=== PATIENT | male | born 1960 | race Caucasian/White ===

== ENCOUNTER 2016-09-30 20:05 | Inpatient (IN) | payer MEDICAID ==
[2016-09-30] MEDS ORDERED: LEVOFLOXACIN 500 MG/D5W RTU 100 ML IV ONE (21:39)
[2016-09-30 21:57] LABS: APPEARANCE,URINE CLEAR; BILIRUBIN,URINE NEGATIVE (NEGATIVE); GLUCOSE, URINE NEGATIVE (NEGATIVE); KETONES,URINE NEGATIVE (NEGATIVE); LEUKOCYTE ESTERASE,URINE NEGATIVE (NEGATIVE); NITRITE,URINE NEGATIVE (NEGATIVE); PROTEIN,URINE NEGATIVE (NEGATIVE); URINE SPECIFIC GRAVITY 1.003; UROBILINOGEN,URINE NEGATIVE mg/dL (<2.0)
[2016-09-30] MEDS ORDERED: LORAZEPAM INJ 2 MG/1 ML VIAL IV ONE (22:02)
[2016-09-30 22:15] LABS: ABSOLUTE BASOPHILS # (AUTO) 0.1 10^3/uL (0.0-0.2); ABSOLUTE EOSINOPHILS # (AUTO) 0.1 10^3/uL (0.0-0.6); ABSOLUTE LYMPHOCYTES (AUTO) 3.1 10^3/uL (0.5-4.7); ABSOLUTE MONOCYTES (AUTO) 0.7 10^3/uL (0.1-1.4); ABSOLUTE NEUT (AUTO) 5.7 10^3/uL (1.7-8.2); BASOPHILS % (AUTO) 1.2 % (0-2); EOSINOPHILS % (AUTO) 0.6 % (0-6); HEMATOCRIT 41.9 % (37.9-51.0); HEMOGLOBIN 14.3 g/dL (13.5-17.0); LYMPHOCYTES % (AUTO) 32.4 % (13-45); MEAN CORPUSCULAR HEMOGLOBIN 34.1 pg (27.0-33.4); MEAN CORPUSCULAR HGB CONC 34.1 g/dL (32.0-36.0); MEAN CORPUSCULAR VOLUME 100 fl (80-97); MONOCYTES % (AUTO) 6.9 % (3-13); RED BLOOD COUNT 4.19 10^6/uL (4.35-5.55); RED CELL DISTRIBUTION WIDTH 13.8 % (11.5-14.0); SEGMENTED NEUTROPHILS % (AUTO) 58.9 % (42-78); WHITE BLOOD COUNT 9.6 10^3/uL (4.0-10.5)
[2016-09-30 22:16] LABS: VENOUS BLOOD BASE EXCESS -8.4 mmol/L; VENOUS BLOOD HCO3 16.3 mmol/L (20-32); VENOUS BLOOD PCO2 31.7 mmHg (35-63); VENOUS BLOOD PH 7.33 (7.30-7.42)
[2016-09-30 22:21] LABS: PROTHROMBIN TIME 12.9 SEC (11.4-15.4)
[2016-09-30] MEDS ORDERED: NORMAL SALINE 1000 ML 1,000 ML IV PRN (22:21)
[2016-09-30 22:39] LABS: ALANINE AMINOTRANSFERASE 30 U/L (21-72); ALBUMIN 4.7 g/dL (3.5-5.0); ALCOHOL 235 mg/dL (NONE DETECTED); ALKALINE PHOSPHATASE 82 U/L (38-126); ANION GAP 19 (5-19); ASPARTATE AMINO TRANSFERASE 22 U/L (17-59); BLOOD UREA NITROGEN 12 mg/dL (7-20); CALCIUM 9.7 mg/dL (8.4-10.2); CARBON DIOXIDE 19 mmol/L (22-30); CHLORIDE 108 mmol/L (98-107); CREATININE RESULT 0.72 mg/dL (0.52-1.25); GLUCOSE 122 mg/dL (75-110); POTASSIUM 3.8 mmol/L (3.6-5.0); TOTAL PROTEIN 7.5 g/dL (6.3-8.2)
[2016-09-30 22:53] LABS: BILIRUBIN,TOTAL 0.4 mg/dL (0.2-1.3)
--- NOTE | 2016-09-30 23:03 | ER Document Report ---
ED General - General Stated Complaint: ALTERED MENTAL STATUS Mode of Arrival: Medic Information source: Patient Notes: 56-year-old male history of substance abuse alcohol abuse who was recently discharged from the hospital after being on life-support presents with complaints of being found down outside his care facility. Patient admitted to drinking. Family notes he is quite confused TRAVEL OUTSIDE OF THE [place] IN LAST 30 DAYS: No - HPI Onset: Just prior to arrival Onset/Duration: Sudden Quality of pain: No pain Severity: Mild Pain Level: 1 Past Medical History - Social History Smoking Status: Current Every Day Smoker Cigarette use (# per day): Yes Chew tobacco use (# tins/day): No Smoking Education Provided: Yes - Patient counselled regarding cessation for 4 minutes Family History: Reviewed & Not Pertinent Review of Systems - Review of Systems Notes: REVIEW OF SYSTEMS: CONSTITUTIONAL : Denies fever, chills, or sweats. Denies recent illness. EENT: Denies eye, ear, throat, or mouth pain or symptoms. Denies nasal or sinus congestion or discharge. Denies throat, tongue, or mouth swelling or difficulty swallowing. CARDIOVASCULAR: Denies chest pain. Denies palpitations or racing or irregular heart beat. Denies ankle edema. RESPIRATORY: Denies cough, cold, or chest congestion. Denies shortness of breath, difficulty breathing, or wheezing. GASTROINTESTINAL: Denies abdominal pain or distention. Denies nausea, vomiting , or diarrhea. Denies blood in vomitus, stools, or per rectum. Denies black, tarry stools. Denies constipation. GENITOURINARY: Denies difficulty urinating, painful urination, burning, frequency, blood in urine, or discharge. MUSCULOSKELETAL: Denies back or neck pain or stiffness. Denies joint pain or swelling. SKIN: Denies rash, lesions or sores. HEMATOLOGIC : Denies easy bruising or bleeding. LYMPHATIC: Denies swollen, enlarged glands. NEUROLOGICAL: Denies confusion or altered mental status. Denies passing out or loss of consciousness. Denies dizziness or lightheadedness. Denies headache. Denies weakness or paralysis or loss of use of either side. Denies problems with gait or speech. Denies sensory loss, numbness, or tingling. Denies seizures. PSYCHIATRIC: Denies anxiety or stress. Denies depression, suicidal ideation, or homicidal ideation. ALL OTHER SYSTEMS REVIEWED AND NEGATIVE. Dictation was performed using Dragon voice recognition software PHYSICAL EXAMINATION: GENERAL: Well-appearing, well-nourished and in mild resp distress. pt intoxicated HEAD: Atraumatic, normocephalic. EYES: Pupils equal round and reactive to light, extraocular movements intact, sclera anicteric, conjunctiva are normal. ENT: Nares patent, oropharynx clear without exudates. Moist mucous membranes. NECK: Normal range of motion, supple without lymphadenopathy LUNGS: coarse wheezing all throughout HEART: Regular rate and rhythm without murmurs ABDOMEN: Soft, nontender, nondistended abdomen. No guarding, no rebound. No masses appreciated. Musculoskeletal: Normal range of motion, no pitting or edema. No cyanosis. NEUROLOGICAL: slurred speech SKIN: Warm, Dry, normal turgor, no rashes or lesions noted. Physical Exam - Vital signs Vitals: Temp Pulse Resp BP Pulse Ox 97.6 F 77 18 113/60 87 L 09/30/16 20:21 09/30/16 20:21 09/30/16 20:21 09/30/16 20:21 09/30/16 20:21 Course - Re-evaluation Re-evalutation: 09/30/16 23:17 Immediate chest x-ray was performed which noted bilateral infiltrates, patient' s lab work does note lactic acidosis. He is also intoxicated. Patient does meet criteria for sepsis and was started on antibiotics, pt was hypoxic started on o2 10/01/16 01:43 contacted hospitalist, requests call back 10/01/16 03:[address] Lewis, tk admission - Vital Signs Vital signs: Temp Pulse Resp BP Pulse Ox 97.6 F 77 18 102/62 92 09/30/16 20:21 09/30/16 20:21 10/01/16 01:23 10/01/16 01:23 10/01/16 01:23 - Laboratory Result Diagrams: 09/30/16 22:00 09/30/16 22:00 Laboratory results interpreted by me: 09/30/16 09/30/16 09/30/16 22:00 22:00 22:00 RBC 4.19 L MCV 100 H MCH 34.1 H VBG pCO2 VBG HCO3 Sodium 146.0 H Chloride 108 H Carbon Dioxide 19 L Glucose 122 H POC Glucose Lactic Acid 3.8 H 09/30/16 09/30/16 22:00 23:09 RBC MCV MCH VBG pCO2 31.7 L VBG HCO3 16.3 L Sodium Chloride Carbon Dioxide Glucose POC Glucose 133 H Lactic Acid - Diagnostic Test Radiology reviewed: Image reviewed, Reports reviewed - EKG Interpretation by Me EKG shows normal: Sinus rhythm, Mikado, Intervals, QRS Complexes - Consults Dr lewis Time consulted: 23:17 Reason for consultation: 09/30/16 23:17 pending admission for sepsis pneumonia Critical Care Note - Critical Care Note Total time excluding time spent on procedures (mins): 34 Comments: 34 minutes of critical care time spent in direct contact evaluating and reevaluating the patient, treating symptoms, reviewing labs and studies and speaking with family and consultants excluding any procedures Discharge - Discharge Clinical Impression: Hospital acquired PNA, Alcohol abuse, Hypoxemia Sepsis Qualifiers: Sepsis type: sepsis due to unspecified organism Qualified Code(s): A41.9 - Sepsis, unspecified organism Condition: Fair Disposition: ADMITTED INPATIENT Admitting Provider: Hospitalist Unit Admitted: [facility]
[2016-09-30] MEDS ORDERED: HALOPERIDOL LACTATE INJ 5 MG/1 ML VIAL IV ONE (23:08)
[2016-10-01] MEDS ORDERED: VANCOMYCIN HCL INJ 1000 MG VIAL IV ONE (03:14)
[2016-10-01] MEDS ORDERED: PIPERACILLIN/TAZOBACTAM 3.375 GM VIAL IV ONE (03:15)
[2016-10-01] MEDS ORDERED: ACETAMINOPHEN 325 MG TABLET PO PRN (04:52)
[2016-10-01] MEDS ORDERED: GUAIFENESIN SYRP 200 MG/10 ML UDC PO PRN (04:52)
[2016-10-01] MEDS ORDERED: ALBUTEROL SULFATE 0.083% NEB 2.5 MG/3 ML AMPUL NEB PRN (04:52)
[2016-10-01] MEDS ORDERED: VANCOMYCIN HCL 0 MG in DEXTROSE 5%-WATER 250 ML IV NR (05:00)
[2016-10-01] MEDS ORDERED: LORAZEPAM 1 MG TABLET PO PRN (05:01)
--- NOTE | 2016-10-01 05:15 | PDOC H&P ---
History of Present Illness Admission Date/PCP: 10/01/16 03:28 Primary care provider uncertain Patient complains of: Altered mental status History of Present Illness: STEFANO ROUSE is a 56 year old male, currently a resident of [facility] for the past 3 months or so due to generalized debility due to years of chronic abuse, primarily alcohol, and also drug abuse. Was found down outside the facility and transported to the emergency room for further evaluation and treatment. No further information available this point in time. Was noted to be quite confused upon arrival in the emergency room, and at times has been quite agitated. Patient has been discussed with emergency room physician who evaluated the patient. Patient is oriented only to the fact that he is in the hospital and is able to provide no history whatsoever in terms of acute or chronic events, review of systems, personal habits, family history, etc. Brother Hi is present at his side, with patient's approval, and is helpful and informative. No prior inpatient records available for review. According to his brother, after patient was transferred to [facility] after stay at [facility] late last year for complications of possible drug overdose, patient was doing reasonably well and had been abstaining from alcohol. However, he has recently started back drinking. Prior to the above events, he would drink up to a fifth if not more of liquor a day. 2-3 pack a day smoker. History of drug abuse, including marijuana and crack cocaine. . According to brother, patient told his mother yesterday that he "wanted to . " Laboratory results are listed in [facility] and are reviewed. X-ray summary results are listed below, with full report(s) reviewed. . EKG reviewed. No old EKG available for comparison. Social history/personal habits: . 2 children. On disability. Personal habits as noted above. Allergies/adverse reactions NKDA. Home medications are to be [facility] from the medication administration record from [facility]. [facility] may not accurately reflect patient's true medications, dosages, and/or frequencies. REVIEW OF SYSTEMS: See history and present illness.No further information available this point in time. PHYSICAL EXAMINATION: 5 feet 11 inches tall. 97.98 kg. BMI 30.1 kg/m. Temperature 97.6. Blood pressure 134/73. Pulse 86 and regular. Respirations are 23 and unlabored. 96 % saturation on 2 L oxygen per nasal cannula. Obese disheveled chronically ill-appearing male who appears a number of years older than his stated age. Asleep. Awakens reasonably easily, although remains somewhat somnolent. Cooperative. Brother present at his side; patient approves. Skin is warm and dry. No grossly obvious evidence of rash in areas of skin examined. No subcutaneous nodules palpated. ENT: Hearing grossly normal to normal conversation. Tongue midline on protrusion pink and slightly tacky. Eyes: No scleral icterus. Pupils equal and reactive to light at 4 mm. [place] conjunctivae. Neck is supple and nontender to gentle active range of motion and palpation. Midline trachea. No palpable thyroid nodule mass enlargement or tenderness. Lymphatic: No palpable cervical or clavicular nodes. Neck and lymphatic exams limited by patient body habitus. Psychiatric: Difficult to evaluate due to his current status. Oriented only to the fact that he is in a hospital. Lungs: Auscultation reveals equal breath sounds bilaterally. No use of accessory respiratory muscles. Mildly coarse breath sounds on the right, with slight rhonchi. Much less noticeable on the left, and only in the base on the left. Cardiovascular: Heart regular rate and rhythm, without gallop murmur or rub. No carotid or abdominal aortic bruits. No ankle or pedal edema. palpable dorsalis pedis pulses. Abdomen: soft, obese, nontender with positive bowel sounds. Unable to adequately evaluate abdomen for masses or organomegaly due to body habitus. Extremities: Feet are warm and dry. No calf tenderness to compression. No grossly obvious visual evidence of calf swelling. Gentle manipulation of lower extremities fails to reveal any obvious evidence of injury or instability to knees hips or ankles. Neurologic: Moves upper extremities grossly normally. Patellar reflexes absent. Absent Babinski. Light touch is intact at feet. Dorsiflexion and plantarflexion of feet 5 / 5 and symmetric. Past Medical History Cardiac Medical History: Denies: DVT, Myocardial Infarction, Hyperlipidema, Pulmonary Embolism Pulmonary Medical History: Reports: Chronic Obstructive Pulmonary Disease (COPD) Neurological Medical History: Reports: Seizures Denies: Hemorrhagic CVA, Ischemic CVA Endocrine Medical History: Denies: Diabetes Mellitus Type 1, Diabetes Mellitus Type 2, Hyperthyroidism, Hypothyroidism Renal/ Medical History: Reports: None GI Medical History: Reports: Gastroesophageal Reflux Disease, Other - Fatty liver Denies: Cirrhosis, Hepatitis, Peptic Ulcer Disease Musculoskeltal Medical History: Reports: Other - Ankylosing spondylitis. Psychiatric Medical History: Reports: Alcohol Dependency, Depression, General Anxiety Disorder, Substance Abuse, Tobacco Dependency, Other - suicidal ideation Traumatic Medical History: Reports: Traumatic Brain Injury Hematology: Reports: None Infectious Medical History: Denies: Hepatitis B, Hepatitis C Past Surgical History Past Surgical History: Reports: Orthopedic Surgery - Leg surgery. Social History Information Source: Relative, Emergency Med Personnel, [facility] Records Lives with: Other - Assisted living center Smoking Status: Current Every Day Smoker Frequency of Alcohol Use: Heavy Drugs: Cocaine, Marijuana - Advance Directive Resuscitation Status: Full Code Surrogate healthcare decision maker:: Brother Hi Family History Family History: Reviewed & Not Pertinent Parental Family History Reviewed: Yes Children Family History Reviewed: Yes Sibling(s) Family History Reviewed.: Yes Medication/Allergy Home Medications: RX: Acetaminophen [Tylenol Extra Strength 500 mg Tablet] 500 mg PO Q4HP PRN 07/08 RX: Guaifenesin [Robitussin Syrup 200 mg/10 ml Ud Cup] 10 ml PO Q6HP PRN RX: Haloperidol [Haldol 5 mg Tablet] 5 mg PO DAILY 10/01/16 RX: Ipratropium/Albuterol Sulfate [Iprat-Albut 0.5-3(2.5) mg/3 ml] 3 ml NEB Q6HP PRN 10/01/16 RX: Loperamide HCl [Imodium 2 mg Capsule] 2 mg PO DAILYP PRN 10/01/16 RX: Mag Hydrox/Al Hydrox/Simeth [Maalox Plus Susp 30 Udcup] 30 ml PO HSP PRN 07/08 RX: Magnesium Hydroxide [Milk of Magnesia 30 ml Udcup] 30 ml PO HSP PRN RX: Neomy Sulf/Bacitrac Zn/Poly [Triple Antibiotic Ointment] 1 applic TOP DAILYP PRN 10/01/16 RX: Sertraline HCl [Zoloft] 150 mg PO DAILY 10/01/16 RX: Sulfasalazine [Azulfidine 500 mg Tablet.dr] 1,500 mg PO Q8 10/01/16 RX: Topiramate [Topamax] 50 mg PO Q12 10/01/16 RX: Trazodone HCl [Desyrel 50 mg Tablet] 50 mg PO QHS 10/01/16 Levofloxacin [Levaquin 750 mg Tablet] 750 mg PO DAILY #5 tablet 10/02/16 RX: Hydrocodone Bit/Acetaminophen [Hydrocodon-Acetaminophen 5-325] 1 each PO Q6HP PRN #10 tablet 10/02/16 RX: Lorazepam [Ativan 0.5 mg Tablet] 0.5 mg PO BID #10 tablet 10/02/16 RX: Multivitamin [Tab-A-Olvin (Multiple Vitamin) Tablet] 1 tab PO DAILY #30 tablet 10/02/16 RX: Nicotine [Nicoderm 21 mg/24 Hr Transderm Patch] 1 each TD DAILYP PRN #7 patch.td24 10/02/16 Allergies/Adverse Reactions: No Known Allergies Allergy (Unverified 10/01/16 05:03) Physical Exam Vital Signs: Temp Pulse Resp BP Pulse Ox 97.6 F 77 17 117/82 94 09/30/16 20:21 09/30/16 20:21 10/01/16 04:01 10/01/16 04:01 10/01/16 04:01 Results Impressions: Chest X-Ray 09/30/16 20:27 IMPRESSION: Bibasilar infiltrates. Head CT 09/30/16 23:19 IMPRESSION: No acute intracranial hemorrhage or acute territorial infarct. Assessment & Plan - Diagnosis (1) Alcohol intoxication Qualifiers: Complication of substance-induced condition: with unspecified complication Qualified Code(s): F10.129 - Alcohol abuse with intoxication, unspecified Is this a current diagnosis for this admission?: YesPlan: Daily multivitamin, folic acid, and thiamine. When necessary Ativan. Observe closely for signs of alcohol draw and treat appropriately. Brother interested in a higher level of care for patient, given his ongoing alcohol abuse. Discharge planning consult. (2) Pneumonia Qualifiers: Pneumonia type: due to unspecified organism Laterality: bilateral Lung location: lower lobe of lung Qualified Code(s): J18.9 - Pneumonia, unspecified organism Is this a current diagnosis for this admission?: YesPlan: Patient will be admitted under pneumonia protocol. Incentive spirometry twice a day. Scheduled DuoNeb's. PRN albuterol nebs Antibiotics will consist of intravenous vancomycin, cefepime, and intravenous Zithromax. Pharmacy to assist with dosing. I have strongly encouraged brother to remind patient not to get out of bed without notifying staff, , to avoid a fall with injury. Knee high SCDs for DVT prophylaxis, along with subcutaneous Lovenox Impression and plans were discussed with brother, who concurs. Time spent in evaluation and management of patient: 64 minutes. (3) Suicidal ideation Is this a current diagnosis for this admission?: YesPlan: Suicide precautions. Psychiatric consult. (4) Alcohol abuse Is this a current diagnosis for this admission?: Yes (5) COPD (chronic obstructive pulmonary disease) Qualifiers: COPD type: unspecified COPD Qualified Code(s): J44.9 - Chronic obstructive pulmonary disease, unspecified Is this a current diagnosis for this admission?: Yes (6) History of traumatic brain injury Is this a current diagnosis for this admission?: Yes (7) ALEJANDRA (obstructive sleep apnea) Is this a current diagnosis for this admission?: YesPlan: Brother uncertain of settings for patient's machine. CPAP daily at bedtime. - Inpatient Certification Based on my medical assessment, after consideration of the patient's comorbidities, presenting symptoms, or acuity I expect that the services needed warrant INPATIENT care.: Yes I certify that my determination is in accordance with my understanding of Medicare's requirements for reasonable and necessary INPATIENT services [42 CFR 412.3e].: Yes Medical Necessity: Significant Comorbidiites Make Outpatient Treatment Too Risky , Need Close Monitoring Due to Risk of Patient Decompensation, Need For IV Fluids, Need For Continuous Telemetry Monitoring, Need for Nebulizer Therapy and Monitoring of Response, Need for IV Antibiotics, Risk of Complication if Not Cared For in Hospital, Risk of Diagnosis Which Will Require Inpatient Eval/ Care/Monitoring Post Hospital Care: D/C or Transfer Summary
[2016-10-01] MEDS ORDERED: NICOTINE 21 MG/24 HR PATCH.TD24 TD PRN (05:27)
[2016-10-01 05:38] LABS: ABSOLUTE EOSINOPHILS # (AUTO) 0.1 10^3/uL (0.0-0.6); ABSOLUTE LYMPHOCYTES (AUTO) 2.7 10^3/uL (0.5-4.7); ABSOLUTE MONOCYTES (AUTO) 0.7 10^3/uL (0.1-1.4); ABSOLUTE NEUT (AUTO) 3.9 10^3/uL (1.7-8.2); BASOPHILS % (AUTO) 0.3 % (0-2); EOSINOPHILS % (AUTO) 1.2 % (0-6); HEMATOCRIT 37.7 % (37.9-51.0); HEMOGLOBIN 12.8 g/dL (13.5-17.0); HGB HCT DIFFERENCE 0.7; LYMPHOCYTES % (AUTO) 36.6 % (13-45); MEAN CORPUSCULAR VOLUME 100 fl (80-97); MONOCYTES % (AUTO) 9.3 % (3-13); RED BLOOD COUNT 3.77 10^6/uL (4.35-5.55); RED CELL DISTRIBUTION WIDTH 14.1 % (11.5-14.0); SEGMENTED NEUTROPHILS % (AUTO) 52.6 % (42-78); WHITE BLOOD COUNT 7.5 10^3/uL (4.0-10.5)
[2016-10-01 05:49] LABS: VENOUS BLOOD BASE EXCESS -6.2 mmol/L; VENOUS BLOOD HCO3 19.6 mmol/L (20-32); VENOUS BLOOD PCO2 40.1 mmHg (35-63); VENOUS BLOOD PH 7.31 (7.30-7.42)
[2016-10-01] MEDS ORDERED: VANCOMYCIN HCL INJ 1000 MG VIAL IV PRN (05:55)
[2016-10-01 06:00] LABS: ANION GAP 14 (5-19); BLOOD UREA NITROGEN 10 mg/dL (7-20); CALCIUM 8.2 mg/dL (8.4-10.2); CARBON DIOXIDE 19 mmol/L (22-30); CHLORIDE 110 mmol/L (98-107); CREATINE KINASE 273 U/L (55-170); CREATININE RESULT 0.67 mg/dL (0.52-1.25); GLUCOSE 137 mg/dL (75-110); MAGNESIUM 1.7 mg/dL (1.6-2.3); POTASSIUM 4.1 mmol/L (3.6-5.0); SODIUM 142.8 mmol/L (137-145)
[2016-10-01] MEDS ORDERED: THIAMINE HCL 100 MG TABLET PO ONE (06:00)
[2016-10-01 06:06] LABS: URINE BARBITURATES SCREEN NEGATIVE; URINE METHADONE SCREEN NEGATIVE; URINE OPIATES LOW NEGATIVE; URINE PHENCYCLIDINE SCREEN NEGATIVE
[2016-10-01 06:26] LABS: CREATINE KINASE MB 2.58 ng/mL (<4.55)
[2016-10-01 06:27] LABS: TROPONIN I < 0.012 ng/mL
[2016-10-01] MEDS ORDERED: VANCOMYCIN HCL 2,000 MG in DEXTROSE 5%-WATER 500 ML IV ONE (06:30)
[2016-10-01] MEDS: 1/2 NORMAL SALINE 1,000 ML IV PRN (07:59)
[2016-10-01] MEDS: IPRATROPIUM/ALBUTEROL 0.5-2.5 MG/3 ML AMPUL NEB SCH ×3 (08:43→21:11)
[2016-10-01] MEDS ORDERED: AZITHROMYCIN 500 MG in DEXTROSE 5%-WATER 250 ML IV SCH (10:00)
[2016-10-01] MEDS: FOLIC ACID 1 MG TABLET PO SCH (10:07)
[2016-10-01] MEDS: MULTIVITAMIN TABLET PO SCH (10:07)
[2016-10-01] MEDS: ENOXAPARIN SODIUM INJ 40 MG/0.4 ML DISP.SYRIN SUBCUT SCH (10:08)
[2016-10-01] MEDS ORDERED: DEXTROSE 50%-WATER 25 GM/50 ML DISP.SYRIN IV PRN ×2 (10:41)
[2016-10-01] MEDS ORDERED: INSULIN LISPRO 100 UNIT/ML 3 ML VIAL SUBCUT PRN (10:41)
[2016-10-01] MEDS ORDERED: GLUCAGON,HUMAN RECOMB 1 MG INJ IM PRN (10:41)
[2016-10-01] MEDS ORDERED: DEXTROSE 40% GEL 15 GM TUBE PO PRN ×2 (10:41)
[2016-10-01] MEDS: CEFEPIME 2 GM/D5W RTU 50 ML IV SCH (11:11)
--- NOTE | 2016-10-01 14:36 | PDOC PROGRESS REPORT ---
Subjective Progress Note for:: 10/01/16 Subjective:: No new issues reported. Patient denies fever, chills, headache, new focal weakness, chest pain, shortness of breath, abdominal pain, nausea, vomiting, diarrhea, constipation. Physical Exam Vital Signs: Temp Pulse Resp BP Pulse Ox 97.5 F 78 19 140/92 H 97 10/01/16 08:45 10/01/16 08:43 10/01/16 14:01 10/01/16 14:01 10/01/16 14:01 GENERAL: No acute distress, disheveled HEENT: Conjunctiva clear, nonicteric, moist mucous membranes, no JVD, midline trachea RESPIRATORY: Fine rhonchi heard throughout bilateral posterior lung lomeli CARDIAC: Regular rate and rhythm, no murmurs/gallops/rubs ABDOMEN: Soft, nondistended, nontender, positive bowel sounds, no rebound, no guarding EXTREMETIES: No edema, cyanosis, clubbing NEUROLOGIC: Alert, oriented to person/place/time, CN's grossly intact, no focal deficits SKIN: No rash, wounds PSYCH: Unusual affect Results Laboratory Results: 10/01/16 05:15 10/01/16 05:15 10/01/16 10/01/16 10/01/16 05:15 05:15 05:15 WBC RBC Hgb Hct MCV MCH MCHC RDW Plt Count Seg Neutrophils % Lymphocytes % Monocytes % Eosinophils % Basophils % Absolute Neutrophils Absolute Lymphocytes Absolute Monocytes Absolute Eosinophils Absolute Basophils VBG pH VBG pCO2 VBG HCO3 VBG Base Excess Sodium 142.8 Potassium 4.1 Chloride 110 H Carbon Dioxide 19 L Anion Gap 14 BUN 10 Creatinine 0.67 Est GFR ( Amer) > 60 Est GFR (Non-Af Amer) > 60 Glucose 137 H Calcium 8.2 L Magnesium 1.7 Ammonia 13.6 TSH 1.36 10/01/16 10/01/16 05:15 05:19 WBC 7.5 RBC 3.77 L Hgb 12.8 L Hct 37.7 L MCV 100 H MCH 34.0 H MCHC 34.0 RDW 14.1 H Plt Count 199 Seg Neutrophils % 52.6 Lymphocytes % 36.6 Monocytes % 9.3 Eosinophils % 1.2 Basophils % 0.3 Absolute Neutrophils 3.9 Absolute Lymphocytes 2.7 Absolute Monocytes 0.7 Absolute Eosinophils 0.1 Absolute Basophils 0.0 VBG pH 7.31 VBG pCO2 40.1 VBG HCO3 19.6 L VBG Base Excess -6.2 Sodium Potassium Chloride Carbon Dioxide Anion Gap BUN Creatinine Est GFR ( Amer) Est GFR (Non-Af Amer) Glucose Calcium Magnesium Ammonia TSH 10/01/16 10/01/16 05:15 05:15 Creatine Kinase 273 H CK-MB (CK-2) 2.58 Troponin I < 0.012 Impressions: Chest X-Ray 09/30/16 20:27 IMPRESSION: Bibasilar infiltrates. Head CT 09/30/16 23:19 IMPRESSION: No acute intracranial hemorrhage or acute territorial infarct. Assessment & Plan - Diagnosis (1) Alcohol intoxication Qualifiers: Complication of substance-induced condition: with unspecified complication Qualified Code(s): F10.129 - Alcohol abuse with intoxication, unspecified Is this a current diagnosis for this admission?: YesPlan: Patient was found intoxicated at local assisted living facility. He has history of chronic polysubstance abuse to include alcohol and cocaine. We will place patient on IV Ativan as needed for withdrawal symptoms. Oral thiamine supplementation. (2) Pneumonia Qualifiers: Pneumonia type: due to unspecified organism Laterality: bilateral Lung location: lower lobe of lung Qualified Code(s): J18.9 - Pneumonia, unspecified organism Is this a current diagnosis for this admission?: YesPlan: High probability of gram-negative organism given the fact the patient lives in the health care facility. Continue IV cefepime, IV vancomycin and IV azithromycin pending further blood and sputum cultures. Continue IV fluids. (3) Tobacco abuse Is this a current diagnosis for this admission?: Yes (4) Suicidal ideation Is this a current diagnosis for this admission?: YesPlan: Continue suicide precautions. Psychology consult placed. (5) COPD (chronic obstructive pulmonary disease) Qualifiers: COPD type: unspecified COPD Qualified Code(s): J44.9 - Chronic obstructive pulmonary disease, unspecified Is this a current diagnosis for this admission?: YesPlan: Albuterol nebulizer treatments as needed. (6) History of traumatic brain injury Is this a current diagnosis for this admission?: Yes (7) ALEJANDRA (obstructive sleep apnea) Is this a current diagnosis for this admission?: Yes - Time Time Spent with patient: 35 or more minutes - Inpatient Certification Based on my medical assessment, after consideration of the patient's comorbidities, presenting symptoms, or acuity I expect that the services needed warrant INPATIENT care.: Yes I certify that my determination is in accordance with my understanding of Medicare's requirements for reasonable and necessary INPATIENT services [42 CFR 412.3e].: Yes Medical Necessity: Need Close Monitoring Due to Risk of Patient Decompensation, Need For Continuous Telemetry Monitoring, Need for IV Antibiotics
[2016-10-01] MEDS ORDERED: VANCOMYCIN HCL 1,500 MG in DEXTROSE 5%-WATER 250 ML IV SCH ×2 (18:00→19:00)
--- NOTE | 2016-10-01 20:10 | EKG REPORT ---
SEVERITY:- ABNORMAL ECG - SINUS RHYTHM LEFT ANTERIOR FASCICULAR BLOCK : Confirmed by: Yelena Schmidt 01-Oct-2016 20:09:38
[2016-10-01] MEDS ORDERED: VANCOMYCIN HCL INJ 1000 MG VIAL ONE ×2 (20:58→23:25)
[2016-10-01] MEDS ORDERED: VANCOMYCIN HCL INJ 500 MG VIAL ONE ×2 (20:59→23:25)
[2016-10-01] MEDS: VANCOMYCIN HCL 1,500 MG in DEXTROSE 5%-WATER 250 ML IV SCH (21:00)
[2016-10-01] MEDS: TOPIRAMATE 25 MG TABLET PO SCH (22:46)
[2016-10-01] MEDS ORDERED: CEFEPIME 2 GM/D5W RTU 4 GM/100 ML RTUPB IV ONE (23:25)
[2016-10-02] MEDS: CEFEPIME 2 GM/D5W RTU 50 ML IV SCH (01:11)
[2016-10-02] MEDS: 1/2 NORMAL SALINE 1,000 ML IV PRN (03:00)
[2016-10-02] MEDS: VANCOMYCIN HCL 1,500 MG in DEXTROSE 5%-WATER 250 ML IV SCH (04:51)
--- NOTE | 2016-10-02 08:35 | PDOC DISCHARGE SUMMARY ---
General - Admit/Disc Date/PCP Admission Date/Primary Care Provider: 10/01/16 04:52 Discharge Date: 10/02/16 - Discharge Diagnosis (1) Alcohol intoxication Is this a current diagnosis for this admission?: Yes (2) Pneumonia Is this a current diagnosis for this admission?: Yes (3) Tobacco abuse Is this a current diagnosis for this admission?: Yes (4) Suicidal ideation Is this a current diagnosis for this admission?: Yes (5) COPD (chronic obstructive pulmonary disease) Is this a current diagnosis for this admission?: Yes (6) History of traumatic brain injury Is this a current diagnosis for this admission?: Yes (7) ALEJANDRA (obstructive sleep apnea) Is this a current diagnosis for this admission?: Yes - Additional Information Resuscitation Status: Full Code Discharge Diet: Regular Discharge Activity: Activity As Tolerated Home Medications: Acetaminophen [Tylenol Extra Strength 500 mg Tablet] 500 mg PO Q4HP PRN Guaifenesin [Robitussin Syrup 200 mg/10 ml Ud Cup] 10 ml PO Q6HP PRN 10/01/16 Haloperidol [Haldol 5 mg Tablet] 5 mg PO DAILY 10/01/16 Ipratropium/Albuterol Sulfate [Iprat-Albut 0.5-3(2.5) mg/3 ml] 3 ml NEB Q6HP PRN 10/01/16 Loperamide HCl [Imodium 2 mg Capsule] 2 mg PO DAILYP PRN 10/01/16 Mag Hydrox/Al Hydrox/Simeth [Maalox Plus Susp 30 Udcup] 30 ml PO HSP PRN Magnesium Hydroxide [Milk of Magnesia 30 ml Udcup] 30 ml PO HSP PRN 10/01/16 Neomy Sulf/Bacitrac Zn/Poly [Triple Antibiotic Ointment] 1 applic TOP DAILYP PRN 10/01/16 Sertraline HCl [Zoloft] 150 mg PO DAILY 10/01/16 Sulfasalazine [Azulfidine 500 mg Tablet.dr] 1,500 mg PO Q8 10/01/16 Topiramate [Topamax] 50 mg PO Q12 10/01/16 Trazodone HCl [Desyrel 50 mg Tablet] 50 mg PO QHS 10/01/16 Hydrocodone Bit/Acetaminophen [Hydrocodon-Acetaminophen 5-325] 1 each PO Q6HP PRN #10 tablet 03/13/17 Levofloxacin [Levaquin 750 mg Tablet] 750 mg PO DAILY #5 tablet 10/02/16 Lorazepam [Ativan 0.5 mg Tablet] 0.5 mg PO BID #10 tablet 10/02/16 Multivitamin [Tab-A-Olvin (Multiple Vitamin) Tablet] 1 tab PO DAILY #30 tablet Nicotine [Nicoderm 21 mg/24 Hr Transderm Patch] 1 each TD DAILYP PRN #7 patch.td24 10/02/16 History of Present Illness Patient complains of: Alcohol intoxication History of Present Illness: STEFANO ROUSE is a 56 year old male that was found intoxicated at assisted living facility. Sent to the emergency department. On chest x-ray to have pneumonia and started on antibiotics for this. Hospital Course Hospital Course: Patient was admitted for alcohol intoxication and possible pneumonia. He had no fever or white count on admission. Apparently he walked away from assisted living facility and went to the [employer] store and bought alcohol. He states he has not had anything to drink for over a year or to this. He was initially started on IV antibiotics for pneumonia but has now been transitioned to oral Levaquin. Patient is alert and oriented at time of discharge. He has no respiratory complaints at all. He will be discharged back to assisted living facility on oral antibiotics. Physical Exam Vital Signs: Temp Pulse Resp BP Pulse Ox 98.1 F 64 16 120/76 93 10/02/16 08:00 10/02/16 08:00 10/02/16 08:00 10/02/16 08:00 10/02/16 08:00 Intake & Output 10/01/16 10/02/16 10/03/16 06:59 06:59 06:59 Intake Total 1335 Output Total 600 Balance 735 Weight 102.2 kg GENERAL: No acute distress HEENT: Conjunctiva clear, nonicteric, moist mucous membranes, no JVD, midline trachea RESPIRATORY: Clear to auscultation bilaterally, no wheezes, no rhonchi CARDIAC: Regular rate and rhythm, no murmurs/gallops/rubs ABDOMEN: Soft, nondistended, nontender, positive bowel sounds, no rebound, no guarding EXTREMETIES: No edema, cyanosis, clubbing NEUROLOGIC: Alert, oriented to person/place/time, CN's grossly intact, no focal deficits SKIN: No rash, wounds PSYCH: Normal mood, normal affect Results Laboratory Results: 10/01/16 05:15 10/01/16 05:15 10/01/16 10/01/16 05:15 05:15 Creatine Kinase 273 H CK-MB (CK-2) 2.58 Troponin I < 0.012 Labs- All tests 24 hr 10/01/16 10/02/16 16:46 03:53 POC Glucose 115 H 110 Labs- Last Values WBC 7.5 10^3/uL (4.0-10.5) 10/01/16 05:15 RBC 3.77 10^6/uL (4.35-5.55) L 10/01/16 05:15 Hgb 12.8 g/dL (13.5-17.0) L 10/01/16 05:15 Hct 37.7 % (37.9-51.0) L 10/01/16 05:15 MCV 100 fl (80-97) H 10/01/16 05:15 MCH 34.0 pg (27.0-33.4) H 10/01/16 05:15 MCHC 34.0 g/dL (32.0-36.0) 10/01/16 05:15 RDW 14.1 % (11.5-14.0) H 10/01/16 05:15 Plt Count 199 10^3/uL (150-450) 10/01/16 05:15 Seg Neutrophils % 52.6 % (42-78) 10/01/16 05:15 Lymphocytes % 36.6 % (13-45) 10/01/16 05:15 Monocytes % 9.3 % (3-13) 10/01/16 05:15 Eosinophils % 1.2 % (0-6) 10/01/16 05:15 Basophils % 0.3 % (0-2) 10/01/16 05:15 Absolute Neutrophils 3.9 10^3/uL (1.7-8.2) 10/01/16 05:15 Absolute Lymphocytes 2.7 10^3/uL (0.5-4.7) 10/01/16 05:15 Absolute Monocytes 0.7 10^3/uL (0.1-1.4) 10/01/16 05:15 Absolute Eosinophils 0.1 10^3/uL (0.0-0.6) 10/01/16 05:15 Absolute Basophils 0.0 10^3/uL (0.0-0.2) 10/01/16 05:15 PT 12.9 SEC (11.4-15.4) 09/30/16 22:00 INR 0.94 09/30/16 22:00 VBG pH 7.31 (7.30-7.42) 10/01/16 05:19 VBG pCO2 40.1 mmHg (35-63) 10/01/16 05:19 VBG HCO3 19.6 mmol/L (20-32) L 10/01/16 05:19 VBG Base Excess -6.2 mmol/L 10/01/16 05:19 Sodium 142.8 mmol/L (137-145) 10/01/16 05:15 Potassium 4.1 mmol/L (3.6-5.0) 10/01/16 05:15 Chloride 110 mmol/L (98-107) H 10/01/16 05:15 Carbon Dioxide 19 mmol/L (22-30) L 10/01/16 05:15 Anion Gap 14 (5-19) 10/01/16 05:15 BUN 10 mg/dL (7-20) 10/01/16 05:15 Creatinine 0.67 mg/dL (0.52-1.25) 10/01/16 05:15 Est GFR ( Amer) > 60 (>60) 10/01/16 05:15 Est GFR (Non-Af Amer) > 60 (>60) 10/01/16 05:15 Glucose 137 mg/dL (75-110) H 10/01/16 05:15 POC Glucose 110 mg/dL (70-110) 10/02/16 03:53 Lactic Acid 2.4 mmol/L (0.7-2.1) H 10/01/16 03:23 Calcium 8.2 mg/dL (8.4-10.2) L 10/01/16 05:15 Magnesium 1.7 mg/dL (1.6-2.3) 10/01/16 05:15 Total Bilirubin 0.4 mg/dL (0.2-1.3) 09/30/16 22:00 Direct Bilirubin Not Reportable 09/30/16 22:00 AST 22 U/L (17-59) 09/30/16 22:00 ALT 30 U/L (21-72) 09/30/16 22:00 Alkaline Phosphatase 82 U/L (38-126) 09/30/16 22:00 Ammonia 13.6 umol/L (9-33) 10/01/16 05:15 Creatine Kinase 273 U/L (55-170) H 10/01/16 05:15 CK-MB (CK-2) 2.58 ng/mL (<4.55) 10/01/16 05:15 Troponin I < 0.012 ng/mL 10/01/16 05:15 Total Protein 7.5 g/dL (6.3-8.2) 09/30/16 22:00 Albumin 4.7 g/dL (3.5-5.0) 09/30/16 22:00 TSH 1.36 uIU/mL (0.47-4.68) 10/01/16 05:15 Urine Color YELLOW 09/30/16 20:55 Urine Appearance CLEAR 09/30/16 20:55 Urine pH 6.0 (5.0-9.0) 09/30/16 20:55 Ur Specific [place] 1.003 09/30/16 20:55 Urine Protein NEGATIVE mg/dL (NEGATIVE) 09/30/16 20:55 Urine Glucose (UA) NEGATIVE mg/dL (NEGATIVE) 09/30/16 20:55 Urine Ketones NEGATIVE mg/dL (NEGATIVE) 09/30/16 20:55 Urine Blood NEGATIVE (NEGATIVE) 09/30/16 20:55 Urine Nitrite NEGATIVE (NEGATIVE) 09/30/16 20:55 Urine Bilirubin NEGATIVE (NEGATIVE) 09/30/16 20:55 Urine Urobilinogen NEGATIVE mg/dL (<2.0) 09/30/16 20:55 Ur Leukocyte Esterase NEGATIVE (NEGATIVE) 09/30/16 20:55 Urine Mucus (Auto) RARE /LPF 09/30/16 20:55 Urine Ascorbic Acid NEGATIVE (NEGATIVE) 09/30/16 20:55 Urine Opiates Screen NEGATIVE 09/30/16 20:55 Urine Methadone Screen NEGATIVE 09/30/16 20:55 Ur Barbiturates Screen NEGATIVE 09/30/16 20:55 Ur Phencyclidine Scrn NEGATIVE 09/30/16 20:55 Ur Amphetamines Screen NEGATIVE 09/30/16 20:55 U Benzodiazepines Scrn NEGATIVE 09/30/16 20:55 Urine Cocaine Screen NEGATIVE 09/30/16 20:55 U Marijuana (THC) Screen NEGATIVE 09/30/16 20:55 Serum Alcohol 235 mg/dL (NONE DETECTED) 09/30/16 22:00 09/30/16 21:40 Blood Culture - Preliminary Blood NO GROWTH IN 24 HOURS 09/30/16 20:55 Urine Culture - Preliminary Clean Catch Midstream NO GROWTH IN 1 DAY 09/30/16 03:23 Blood Culture - Preliminary Blood NO GROWTH IN 24 HOURS Impressions: Chest X-Ray 09/30/16 20:27 IMPRESSION: Bibasilar infiltrates. Head CT 09/30/16 23:19 IMPRESSION: No acute intracranial hemorrhage or acute territorial infarct. Qualifiers PATEINT BEING DISCHARGED WITH ANY OF THE FOLLOWING DIAGNOSIS?: No Plan Discharge Plan: Return to assisted living facility. Follow-up with primary care provider as soon as possible. Time Spent: Less than 30 Minutes
[2016-10-02] MEDS: IPRATROPIUM/ALBUTEROL 0.5-2.5 MG/3 ML AMPUL NEB SCH ×2 (08:39→14:34)
[2016-10-02] MEDS: ENOXAPARIN SODIUM INJ 40 MG/0.4 ML DISP.SYRIN SUBCUT SCH (09:00)
[2016-10-02] MEDS ORDERED: CEFEPIME HCL 2 GM in DEXTROSE 5%-WATER 50 ML IV SCH (10:00)
[2016-10-02] MEDS ORDERED: THIAMINE HCL 100 MG TABLET PO SCH (10:00)
[2016-10-02] MEDS: TOPIRAMATE 25 MG TABLET PO SCH (10:09)
[2016-10-02] MEDS: MULTIVITAMIN TABLET PO SCH (10:10)
[2016-10-02] MEDS: FOLIC ACID 1 MG TABLET PO SCH (10:10)
[2016-10-02 12:26] VITALS: BP 112/80
== END 2016-10-02 14:20 | disposition home health service (06) | DRG 194 ==
LOC: ER 20:05 → UNDOADMIN 10-01 03:28 → EH 10-01 03:28 → ICU 10-01 23:46
PROVIDERS: ADMIT Family Medicine; ATTEND Family Medicine
PROC: 3E0F73Z Introduction of Anti-inflammatory into Respiratory Tract, Via Natural or Artificial Opening (ICD-10-PCS; principal; 2016-10-01)
DX: J18.9 Pneumonia, unspecified organism (principal); R45.851 Suicidal ideations; F10.229 Alcohol dependence with intoxication, unspecified; J44.9 Chronic obstructive pulmonary disease, unspecified; G47.33 Obstructive sleep apnea (adult) (pediatric); F12.90 Cannabis use, unspecified, uncomplicated; R09.02 Hypoxemia; F14.10 Cocaine abuse, uncomplicated; K21.9 Gastro-esophageal reflux disease without esophagitis; F32.9 Major depressive disorder, single episode, unspecified; F41.9 Anxiety disorder, unspecified; F17.210 Nicotine dependence, cigarettes, uncomplicated; M45.9 Ankylosing spondylitis of unspecified sites in spine; Z87.820 Personal history of traumatic brain injury
CPT/HCPCS: 36415; 70450; 71010; 80048; 80053; 80307; 81001; 82140; 82550; 82553; 82803; 82962; 83605; 83735; 84443; 84484; 85025; 85610; 87040; 87086; 93005; 93010; 94640; 96365; 96366; 96375; 96376; 99291; 99406; J0456; J0692; J1630; J1650; J1956; J2060; J2543; J3370; J3490; J7060; J7620

== ENCOUNTER 2017-01-25 14:33 | Emergency (ER) | payer MEDICAID ==
[2017-01-25] MEDS ORDERED: ALBUTEROL SULFATE 0.083% NEB 2.5 MG/3 ML AMPUL NEB ONE (14:45)
--- NOTE | 2017-01-25 14:47 | ER Document Report ---
ED Respiratory Problem - General Chief Complaint: Shortness Of Breath Stated Complaint: SHORTNESS OF BREATH Time Seen by Provider: 01/25/17 14:38 Mode of Arrival: Medic Information source: Patient Notes: Patient is a 56-year-old male with COPD from [facility] who presents to the ER today for 5 days of cough, shortness of breath, wheezing. He denies any fevers or chills. TRAVEL OUTSIDE OF THE [place] IN LAST 30 DAYS: No - Related Data Allergies/Adverse Reactions: No Known Allergies Allergy (Verified 01/25/17 16:36) Past Medical History - General Information source: Patient - Social History Smoking Status: Unknown if Ever Smoked Family History: Reviewed & Not Pertinent - Past Medical History Cardiac Medical History: Denies: Hx DVT, Hx Heart Attack, Hx Hypercholesterolemia, Hx Pulmonary Embolism Pulmonary Medical History: Reports: Hx COPD Neurological Medical History: Reports: Hx Seizures Endocrine Medical History: Denies: Hx Diabetes Mellitus Type 1, Hx Diabetes Mellitus Type 2, Hx Hyperthyroidism, Hx Hypothyroidism GI Medical History: Reports: Hx Gastroesophageal Reflux Disease. Denies: Hx Cirrhosis, Hx Hepatitis Psychiatric Medical History: Reports: Hx Depression Traumatic Medical History: Reports: Hx Traumatic Brain Injury Infectious Medical History: Denies: Hx Hepatitis Past Surgical History: Reports: Hx Orthopedic Surgery - Leg surgery. - Immunizations Hx Diphtheria, Pertussis, Tetanus Vaccination: - unkown Review of Systems - Review of Systems Constitutional: No symptoms reported EENT: No symptoms reported Cardiovascular: No symptoms reported Respiratory: See HPI Gastrointestinal: No symptoms reported Genitourinary: No symptoms reported Male Genitourinary: No symptoms reported Musculoskeletal: No symptoms reported Skin: No symptoms reported Hematologic/Lymphatic: No symptoms reported Neurological/Psychological: No symptoms reported Physical Exam - Vital signs Vitals: Temp Pulse Resp BP Pulse Ox 97.9 F 73 22 H 143/81 H 95 01/25/17 14:35 01/25/17 14:35 01/25/17 14:35 01/25/17 14:35 01/25/17 14:35 - Notes Notes: PHYSICAL EXAMINATION: GENERAL: Well-appearing and in no acute distress. HEAD: Atraumatic, normocephalic. EYES: Pupils equal round and reactive to light, extraocular movements intact, sclera anicteric, conjunctiva are normal. NECK: Normal range of motion, supple without lymphadenopathy LUNGS: Mild expiratory wheezes in field, no , rales or rhonchi. HEART: Regular rate and rhythm without murmurs ABDOMEN: Soft, no tenderness. No guarding, no rebound BACK: no vertebral tenderness, normal ROM GI/: no CVA tenderness EXTREMITIES: Normal range of motion, no pitting edema. No cyanosis. NEUROLOGICAL: alert and oriented 3, Cranial nerves grossly intact. Normal sensory/motor exams. PSYCH: Normal mood, normal affect. SKIN: Warm, Dry, normal turgor, no rashes or lesions noted Course - Re-evaluation Re-evalutation: 01/25/17 18:29 Chest x-ray is negative for any acute pathology. Patient's white blood cell count is elevated at 12.6. Patient is actually 96% oxygen saturation on room air. - Vital Signs Vital signs: Temp Pulse Resp BP Pulse Ox 97.9 F 73 22 H 143/81 H 95 01/25/17 14:35 01/25/17 14:35 01/25/17 14:35 01/25/17 14:35 01/25/17 14:35 - Laboratory Result Diagrams: 01/25/17 16:23 01/25/17 16:23 Laboratory results interpreted by me: 01/25/17 01/25/17 01/25/17 16:23 16:23 16:50 WBC 12.6 H RBC 3.87 L Hgb 12.9 L MCV 102 H Carbon Dioxide 20 L Glucose 132 H Urine Ascorbic Acid 40 H Discharge - Discharge Clinical Impression: COPD exacerbation Condition: Stable Disposition: HOME, SELF-CARE Instructions: Chronic Obstructive Lung Disease ([facility]) Additional Instructions: Return immediately for any new or worsening symptoms. Follow up with primary care provider, call tomorrow to make followup appointment. Prescriptions: Benzonatate [Tessalon Perle 100 mg Capsule] 100 mg PO Q8HP PRN #40 cap PRN Reason: Azithromycin [Zithromax 250 mg Tablet] 250 mg PO ASDIR PRN #6 tablet PRN Reason:
--- NOTE | 2017-01-25 15:53 | RADIOLOGY REPORT (SQ) ---
EXAM DESCRIPTION: CHEST PA/LAT COMPLETED DATE/TIME: 01/25/2017 3:44 pm REASON FOR STUDY: copd, sob, cough, wheezing COMPARISON: AP chest 09/30/2016 EXAM PARAMETERS: NUMBER OF VIEWS: two views TECHNIQUE: Digital Frontal and Lateral radiographic views of the chest acquired. RADIATION DOSE: NA LIMITATIONS: none FINDINGS: LUNGS AND PLEURA: No opacities, masses or pneumothorax. No pleural effusion. MEDIASTINUM AND HILAR STRUCTURES: No masses or contour abnormalities. HEART AND VASCULAR STRUCTURES: Heart normal size. No evidence for failure. BONES: Osteopenic. Old healed left mid 3rd clavicle and left upper lateral rib fractures HARDWARE: None in the chest. OTHER: No other significant finding. IMPRESSION: NO SIGNIFICANT RADIOGRAPHIC FINDING IN THE CHEST. TECHNICAL DOCUMENTATION: JOB ID: [id number] [employer]- All Rights Reserved
[2017-01-25 16:35] LABS: ABSOLUTE BASOPHILS # (AUTO) 0.1 10^3/uL (0.0-0.2); ABSOLUTE EOSINOPHILS # (AUTO) 0.2 10^3/uL (0.0-0.6); ABSOLUTE LYMPHOCYTES (AUTO) 2.7 10^3/uL (0.5-4.7); ABSOLUTE MONOCYTES (AUTO) 1.4 10^3/uL (0.1-1.4); ABSOLUTE NEUT (AUTO) 8.2 10^3/uL (1.7-8.2); BASOPHILS % (AUTO) 0.6 % (0-2); EOSINOPHILS % (AUTO) 1.4 % (0-6); HEMATOCRIT 39.3 % (37.9-51.0); HEMOGLOBIN 12.9 g/dL (13.5-17.0); HGB HCT DIFFERENCE -0.6; LYMPHOCYTES % (AUTO) 21.7 % (13-45); MEAN CORPUSCULAR HEMOGLOBIN 33.4 pg (27.0-33.4); MEAN CORPUSCULAR HGB CONC 32.9 g/dL (32.0-36.0); MEAN CORPUSCULAR VOLUME 102 fl (80-97); MONOCYTES % (AUTO) 10.7 % (3-13); RED BLOOD COUNT 3.87 10^6/uL (4.35-5.55); RED CELL DISTRIBUTION WIDTH 13.3 % (11.5-14.0); SEGMENTED NEUTROPHILS % (AUTO) 65.6 % (42-78); WHITE BLOOD COUNT 12.6 10^3/uL (4.0-10.5)
[2017-01-25 16:41] LABS: VENOUS BLOOD BASE EXCESS -2.9 mmol/L; VENOUS BLOOD HCO3 22.6 mmol/L (20-32); VENOUS BLOOD PCO2 41.7 mmHg (35-63); VENOUS BLOOD PH 7.35 (7.30-7.42)
[2017-01-25] MEDS ORDERED: AZITHROMYCIN 250 MG TABLET PO ONE (16:44)
[2017-01-25 16:55] LABS: ALANINE AMINOTRANSFERASE 33 U/L (21-72); ALBUMIN 4.3 g/dL (3.5-5.0); ALKALINE PHOSPHATASE 89 U/L (38-126); ANION GAP 13 (5-19); ASPARTATE AMINO TRANSFERASE 30 U/L (17-59); BILIRUBIN,TOTAL 0.4 mg/dL (0.2-1.3); BLOOD UREA NITROGEN 14 mg/dL (7-20); CARBON DIOXIDE 20 mmol/L (22-30); CHLORIDE 107 mmol/L (98-107); CREATININE RESULT 0.64 mg/dL (0.52-1.25); GLUCOSE 132 mg/dL (75-110); POTASSIUM 4.3 mmol/L (3.6-5.0); SODIUM 140.2 mmol/L (137-145); TOTAL PROTEIN 7.3 g/dL (6.3-8.2)
[2017-01-25 17:35] LABS: URINE BARBITURATES SCREEN NEGATIVE; URINE METHADONE SCREEN NEGATIVE; URINE OPIATES LOW NEGATIVE; URINE PHENCYCLIDINE SCREEN NEGATIVE
[2017-01-25 17:38] LABS: APPEARANCE,URINE CLEAR; BILIRUBIN,URINE NEGATIVE (NEGATIVE); GLUCOSE, URINE NEGATIVE (NEGATIVE); KETONES,URINE NEGATIVE (NEGATIVE); LEUKOCYTE ESTERASE,URINE NEGATIVE (NEGATIVE); NITRITE,URINE NEGATIVE (NEGATIVE); PROTEIN,URINE NEGATIVE (NEGATIVE); URINE SPECIFIC GRAVITY 1.017; UROBILINOGEN,URINE NEGATIVE mg/dL (<2.0)
[2017-01-25] MEDS ORDERED: ALBUTEROL SULFATE HFA (90 MCG/PUFF) 8 GM MDI (1 MDI/ER DISP) IH PRN (18:07)
[2017-01-25 19:33] VITALS: BP 145/80
== END 2017-01-25 19:35 | disposition home or self-care (01) ==
LOC: ER 14:33
DX: J44.1 Chronic obstructive pulmonary disease with (acute) exacerbation (principal); R06.02 Shortness of breath; R05 Cough
CPT/HCPCS: 94640; 99285; 36415; 85025; 80053; 81001; 80307; 82803; 71020; Q0144; J3490

== ENCOUNTER 2017-03-16 12:04 | Emergency (ER) | payer MEDICAID ==
[2017-03-16] MEDS ORDERED: PREDNISONE 20 MG TABLET PO ONE (12:13)
[2017-03-16] MEDS ORDERED: ALBUTEROL SULFATE 0.083% NEB 2.5 MG/3 ML AMPUL NEB ONE (12:13)
--- NOTE | 2017-03-16 12:22 | ER Document Report ---
ED Respiratory Problem - General Chief Complaint: Breathing Difficulty Stated Complaint: DIFFICULTY BREATHING Time Seen by Provider: 03/16/17 12:13 Mode of Arrival: Medic Information source: Patient Notes: 56-year-old male with COPD that lives on the house due to AMS TBI called EMS today because he has been having shortness of breath for several days. He was outside smoking a cigarette when EMS got there to bring him to the emergency department. He has a DuoNeb treatment at this time with course lateral rhonchi and wheezing. Respiratory rate ranges from 24-36. He denies chest pain. He does not know his primary care doctor's name. He does not know the day. Pulse ox is 92- 93% on room air after the breathing treatment. [facility] not [facility]. He was in ER 01-25-17 with same complaints, tx as outpatient. TRAVEL OUTSIDE OF THE [place] IN LAST 30 DAYS: No - Related Data Allergies/Adverse Reactions: No Known Allergies Allergy (Verified 03/16/17 12:54) Past Medical History - General Information source: Patient - Social History Smoking Status: Current Every Day Smoker Frequency of alcohol use: None Drug Abuse: None Occupation: unemployed Lives with: [facility] Family History: Reviewed & Not Pertinent - Past Medical History Cardiac Medical History: Denies: Hx Coronary Artery Disease Pulmonary Medical History: Reports: Hx COPD Neurological Medical History: Reports: Hx Seizures Renal/ Medical History: Denies: Hx Peritoneal Dialysis GI Medical History: Reports: Hx Gastroesophageal Reflux Disease Psychiatric Medical History: Reports: Hx Depression Traumatic Medical History: Reports: Hx Traumatic Brain Injury Infectious Medical History: Denies: Hx Hepatitis Past Surgical History: Reports: Hx Orthopedic Surgery - Leg surgery. - Immunizations Hx Diphtheria, Pertussis, Tetanus Vaccination: - unkown Review of Systems - Review of Systems Constitutional: No symptoms reported EENT: No symptoms reported Cardiovascular: No symptoms reported Respiratory: See HPI Gastrointestinal: No symptoms reported Genitourinary: No symptoms reported Male Genitourinary: No symptoms reported Musculoskeletal: No symptoms reported Skin: No symptoms reported Hematologic/Lymphatic: No symptoms reported Neurological/Psychological: No symptoms reported Physical Exam - Vital signs Vitals: Resp 30 H 03/16/17 12:06 Interpretation: Hypoxic - 92-93 %, Tachypneic - General General appearance: Appears well, Alert In distress: None - HEENT Head: Normocephalic, Atraumatic Eyes: Normal Conjunctiva: Normal Pupils: PERRL Mucous membranes: Normal Pharynx: Erythema Neck: Supple. No: Lymphadenopathy - Respiratory Respiratory status: Tachypnea Chest status: Nontender Breath sounds: Rhonchi - course bilateral, Wheezing - coarse bilateral Chest palpation: Normal - Cardiovascular Rhythm: Regular Heart sounds: Normal auscultation Murmur: No - Abdominal Inspection: Normal Distension: No distension Bowel sounds: Normal Tenderness: Nontender. No: Tender Organomegaly: No organomegaly - Back Back: Normal, Nontender - Extremities General upper extremity: Normal inspection, Nontender, Normal color, Normal ROM , Normal temperature General lower extremity: Normal inspection, Nontender, Normal color, Normal ROM , Normal temperature, Normal weight bearing. No: Wilber's sign - Neurological Neuro grossly intact: Yes Cognition: Other - see below Erwin Coma Scale Eye Opening: Spontaneous Erwin Coma Scale Verbal: None - normal due to TBI, knows name, not date Erwin Coma Scale Motor: Obeys Commands Erwin Coma Scale Total: 11 Speech: Normal Motor strength normal: LUE, RUE, LLE, RLE Sensory: Normal - Psychological Associated symptoms: Normal affect, Normal mood - Skin Skin Temperature: Warm Skin Moisture: Dry Skin Color: Normal Skin irregularity: negative: Rash Course - Re-evaluation Re-evalutation: 03/16/17 14:48 Patient ambulated without oxygen and his pulse ox was 97% during ambulation with no complaints of shortness of breath. When he sits in the bed his pulse ox is 9192%. I did order another DuoNeb to be given before his discharge to [facility]. consult dr. leon, ekg NSR no change from previous ekg. chest xray shows right lower lobe pneumonia, started on levaquin, steroid, more inhaled bronchodilators at [facility]. RX given , explained to pt need to stop smoking. still has some coarse rhonci which change with the cough. he feels better 03/16/17 14:50 - Vital Signs Vital signs: Temp Pulse Resp BP Pulse Ox 98.4 F 19 132/86 H 94 03/16/17 12:10 03/16/17 13:01 03/16/17 13:01 03/16/17 13:01 - Laboratory Result Diagrams: 03/16/17 12:20 03/16/17 12:20 Laboratory results interpreted by me: 03/16/17 03/16/17 12:20 12:20 WBC 13.6 H RBC 4.19 L MCV 98 H Absolute Neutrophils 9.8 H Carbon Dioxide 21 L Glucose 137 H ALT 18 L - EKG Interpretation by Me EKG shows normal: Sinus rhythm Rate: Normal Rhythm: NSR Discharge - Discharge Clinical Impression: Right lower lobe pneumonia Qualifiers: Pneumonia type: due to unspecified organism Qualified Code(s): J18.1 - Lobar pneumonia, unspecified organism COPD (chronic obstructive pulmonary disease) Qualifiers: COPD type: COPD with acute lower respiratory infection Qualified Code(s): J44.0 - Chronic obstructive pulmonary disease with acute lower respiratory infection Condition: Good Disposition: HOME, SELF-CARE Instructions: Chronic Obstructive Lung Disease ([facility]), Inhaled Bronchodilators ( [facility]), Stop Smoking ([facility]), Steroid Medication Additional Instructions: STOP SMOKING see your doctor on sunday for follow up plenty of fluids albuterol nebulizer treatment four times per day levofloxacin 750 mg daily for 4 more days prednisone for 5 more days Please complete the patient satisfaction survey if you get one, and return it.. If you do not receive a survey, then you can go to the [facility] website, [email or web address] and place your comments about your very good care. Thank you very much. It was a pleasure being your medical provider today. Prescriptions: Albuterol Sulfate [Ventolin 0.083% Neb 2.5 mg/3 mL Ampul] 2.5 mg NEB Q3HP PRN # 25 vial PRN Reason: Albuterol Sulfate [Proair HFA Inhalation Aerosol 8.5 gm MDI] 2 puff IH Q3HP PRN #1 hfa.aer.[email or web address] PRN Reason: Levofloxacin [Levaquin] 750 mg PO DAILY #4 tablet Prednisone [Deltasone 20 mg Tablet] 40 mg PO DAILY #10 tablet
[2017-03-16 12:41] LABS: ABSOLUTE LYMPHOCYTES (AUTO) 2.5 10^3/uL (0.5-4.7); ABSOLUTE MONOCYTES (AUTO) 1.2 10^3/uL (0.1-1.4); ABSOLUTE NEUT (AUTO) 9.8 10^3/uL (1.7-8.2); BASOPHILS % (AUTO) 0.3 % (0-2); EOSINOPHILS % (AUTO) 0.3 % (0-6); HEMATOCRIT 40.9 % (37.9-51.0); HGB HCT DIFFERENCE 1.1; LYMPHOCYTES % (AUTO) 18.2 % (13-45); MEAN CORPUSCULAR HEMOGLOBIN 33.3 pg (27.0-33.4); MEAN CORPUSCULAR HGB CONC 34.1 g/dL (32.0-36.0); MEAN CORPUSCULAR VOLUME 98 fl (80-97); RED BLOOD COUNT 4.19 10^6/uL (4.35-5.55); SEGMENTED NEUTROPHILS % (AUTO) 72.2 % (42-78); WHITE BLOOD COUNT 13.6 10^3/uL (4.0-10.5)
--- NOTE | 2017-03-16 13:05 | RADIOLOGY REPORT (SQ) ---
EXAM DESCRIPTION: CHEST SINGLE VIEW COMPLETED DATE/TIME: 03/16/2017 12:54 pm REASON FOR STUDY: shortness of breath COMPARISON: None. EXAM PARAMETERS: NUMBER OF VIEWS: One view. TECHNIQUE: Single frontal radiographic view of the chest acquired. RADIATION DOSE: NA LIMITATIONS: None. FINDINGS: LUNGS AND PLEURA: COPD. Right basilar markings appear more prominent on the prior study s uggesting mild pneumonia. MEDIASTINUM AND HILAR STRUCTURES: No masses. Contour normal. HEART AND VASCULAR STRUCTURES: Heart normal in size. Normal vasculature. BONES: No acute findings. HARDWARE: None in the chest. Multiple old healed left rib fractures. OTHER: No other significant finding. IMPRESSION: 1. COPD. 2. Mild right basilar pneumonia. TECHNICAL DOCUMENTATION: JOB ID: [id number]
[2017-03-16 13:08] LABS: ALANINE AMINOTRANSFERASE 18 U/L (21-72); ALBUMIN 4.4 g/dL (3.5-5.0); ALKALINE PHOSPHATASE 96 U/L (38-126); ANION GAP 14 (5-19); ASPARTATE AMINO TRANSFERASE 22 U/L (17-59); BILIRUBIN,TOTAL 0.5 mg/dL (0.2-1.3); BLOOD UREA NITROGEN 14 mg/dL (7-20); CALCIUM 9.4 mg/dL (8.4-10.2); CARBON DIOXIDE 21 mmol/L (22-30); CHLORIDE 104 mmol/L (98-107); CREATINE KINASE 146 U/L (55-170); CREATININE RESULT 0.65 mg/dL (0.52-1.25); GLUCOSE 137 mg/dL (75-110); SODIUM 138.9 mmol/L (137-145); TOTAL PROTEIN 7.2 g/dL (6.3-8.2)
[2017-03-16 13:15] LABS: CREATINE KINASE MB 2.92 ng/mL (<4.55)
[2017-03-16 13:23] LABS: TROPONIN I < 0.012 ng/mL
[2017-03-16] MEDS ORDERED: LEVOFLOXACIN 750 MG TABLET PO ONE (13:52)
[2017-03-16 14:34] LABS: VENOUS BLOOD BASE EXCESS -0.5 mmol/L; VENOUS BLOOD PCO2 39.1 mmHg (35-63); VENOUS BLOOD PH 7.41 (7.30-7.42)
[2017-03-16] MEDS ORDERED: IPRATROPIUM/ALBUTEROL 0.5-2.5 MG/3 ML AMPUL NEB ONE (14:47)
[2017-03-16 15:15] VITALS: BP 132/80
--- NOTE | 2017-03-17 00:05 | EKG REPORT ---
SEVERITY:- ABNORMAL ECG - SINUS RHYTHM LEFT ANTERIOR FASCICULAR BLOCK : Confirmed by: Yelena Schmidt 17-Mar-2017 00:04:14
== END 2017-03-16 15:48 | disposition home or self-care (01) ==
LOC: ER 12:04
DX: J44.0 Chronic obstructive pulmonary disease with (acute) lower respiratory infection (principal); J18.1 Lobar pneumonia, unspecified organism; R09.02 Hypoxemia; F17.210 Nicotine dependence, cigarettes, uncomplicated
CPT/HCPCS: 93005; 94640 ×2; 99285; 36415; 82553; 82550; 85025; 80053; 84484; 82803; 83880; 71010; 93010; J7512; J3490; J7620